=== PATIENT | female | born 1960 | race Hispanic/Latino ===

== ENCOUNTER 2019-01-14 10:13 | Emergency (ER) | payer OTHER ==
[~2019-01-14] VITALS: Ht 152.4 cm; Wt 89.4 kg
--- OUTSIDE RECORDS SUMMARY | 2019-01-14 10:21 | XMS REPORT | Summary of Care ---
Author Author [facility] [place] Organization [facility] [place] Address Unknown Phone Unavailable Encounter HQ Makenzier_dwight(FIN) [id number] Date(s): 04/14/18 - 04/14/18 [facility] [place] [address] [place] [phone] Discharge Disposition: Home or Self Care Attending Physician: ASHIA LOVE Vital Signs No data available for this section Problem List No data available for this section Allergies, Adverse Reactions, Alerts No data available for this section Medications No data available for this section Results No data available for this section Immunizations No data available for this section Procedures No data available for this section Social History No data available for this section Assessment and Plan No data available for this section
--- OUTSIDE RECORDS SUMMARY | 2019-01-14 10:21 | XMS REPORT | Summary of Care ---
Author Author [facility] [place] Address Unknown Phone Unavailable Encounter HQ Encntr_alibonnie(FIN) [id number] Date(s): 12/18/15 - 12/18/15 [facility] [place] [address] [place], [place] [address] [phone] Discharge Disposition: Home Attending Physician: Larisa Gasca MD Vital Signs No data available for this [...]
--- OUTSIDE RECORDS SUMMARY | 2019-01-14 10:21 | XMS REPORT | Summary of Care ---
Author Author [facility] [place] Address Unknown Phone Unavailable Encounter HQ Phillipntr_dwight(FIN) [id number] Date(s): 04/12/17 - 04/12/17 [facility] [place] [address] [place] [phone] Discharge Disposition: Home or Self Care Attending [...]
--- OUTSIDE RECORDS SUMMARY | 2019-01-14 10:21 | XMS REPORT | Clinical Summary ---
Author Author [facility] Organization [facility] Address Unknown Phone Unavailable Care Team Providers Care Career Coach Name Role Phone Jalen Hagen MD PCP Unavailable Allergies No Known Allergies Medications End Date Status Medication Sig Dispensed Refills Start Date Active losartan (COZAAR) 50 MG Take 50 mg by 0 tablet mouth daily. Active cholecalciferol, vitamin Take by 0 D3, 2,000 unit Cap mouth. Active Problems Problem Noted Date Sprain of cruciate ligament of knee 12/09/2014 Social History Date Tobacco Use Types Packs/Day Years Used Never Smoker Smokeless Tobacco: Never Used Alcohol Use Drinks/Week oz/Week Comments No Sex Assigned at Date Recorded Not on file Industry Job Start Date Occupation Not on file Not on file Not on file Travel End Travel History Travel Start No recent travel history available. Last Filed Vital Signs Not on file Plan of Treatment Not on file Implants Device Identifier Shelf Expiration Date Model / Serial / Lot Implanted Type Area Manufactur er 09/21/2016 [id number] / / [id number] [place],Biocomposite Swivelock C [place]/Art Left: Knee ARTHREX 4.75x19.1mm W/Closed Eyelet - hroscopy [id number] Implanted: Qty: 1 on 12/19/2014 by Salvatore Raymond MD 02/20/2016 [id number] / / [id number] Screw,Advanced Interference Senia [place]/Art Left: Knee DEPUY 9x23mm - [id number] hroscopy MITEK Implanted: Qty: 1 on 12/19/2014 by Salvatore Raymond MD 07/22/2017 [id number] / / [id number] Screw,Advanced Interference Senia [place]/Art Left: Knee DEPUY 7x23mm - [id number] hroscopy MITEK Implanted: Qty: 1 on 12/19/2014 by Salvatore Raymond MD 02/15/2019 [id number] / [id number] / Tendon,Achilles L[place] - Tissue Left: Knee MUSCULOSKE [id number] Graft/Subs LETAL Implanted: Qty: 1 on 12/19/2014 by titute TRANSPLANT Salvatore Raymond MD Results Not on fileafter 01/13/2018 Insurance Payer Benefit Subscriber ID Type Phone Address Plan / Group AETNA - MGD CARE AETNA HMO xxxxxxxxxx HMO/POS POS QPOS (Home) [place] [address] Advance Directives For more information, please contact: [facility] [address] [place] [address] Date Inactivated Comments Code Status Date Activated 12/19/2014 2:01 PM Full Code 12/19/2014 6:37 AM This code status was determined by: Patient
--- OUTSIDE RECORDS SUMMARY | 2019-01-14 10:21 | XMS REPORT | Summary of Care ---
Author Organization Unknown Address Unknown Phone Unavailable Encounter HQ Encntr_alias(FIN) [id number] Date(s): 12/13/14 - 12/13/14 [facility] Outpatient Imaging - [address] [address] [phone] Discharge Disposition: Home Physician Attending: Larisa Gasca MD Vital Signs No data [...]
--- OUTSIDE RECORDS SUMMARY | 2019-01-14 10:21 | XMS REPORT | Summary of Care ---
Author Organization Unknown Address Unknown Phone Unavailable Encounter Dates Location Diagnoses Discharge Providers Disposition 12/12/2013 [facility] Outpatient Imaging - [place]: Other Home Larisa Gasca - [place] Screening 12/12/[address]amm[address] Reason for Visit V76.12 - SCREEN MAMMOGRA Problem List No data available for this section Allergies, Adverse Reactions, Alerts No data available for this section Medications No data available for this section Medications Administered During Your Visit No data available for this section Immunizations No data available for this section
--- OUTSIDE RECORDS SUMMARY | 2019-01-14 10:21 | XMS REPORT | Continuity of Care Document ---
Author Author [facility] Address Unknown Phone Unavailable Problems Problem Status Onset Date Classification Date Reported Comments Source Z12.31 - ENCNTR SCREEN MAMMOGRAM FOR MA Active 10/26/2015 [facility] [place] Final: Other Screening Mammogram 12/15/2013 12/20/2013 [facility] [place] Medications Medication Details Route Status Patient Instructions Ordering Provider Order Date Source Allergies, Adverse Reactions, Alerts Substance Category Reaction Severity Reaction type Status Date Reported Comments Source Immunizations Immunization Date Given Site Status Last Updated Comments Source Results Order Name Results Value Reference Range Date Interpretation Comments Source Breast Mammo Scrn ANUJ incl CAD MA Breast Mammo Scrn ANUJ incl CAD CO BILATERAL DIGITAL SCREENING MAMMOGRAM WITH CAD: 04/14/2018 CLINICAL: /Z12.31 Encounter For Screening Mammogram For Malignant Neoplasm Of Breast. Current study was evaluated with a Computer Aided Detection (CAD) system. COMPARISON:Comparison is made to exams dated: 04/12/2017 mammogram, 12/18/2015 mammogram, and 12/13/2014 mammogram - [facility]. TECHNIQUE: Mammographic views were obtained using digital acquisition. Current study was also evaluated with a Computer Aided Detection (CAD) system. FINDINGS: The tissue of both breasts is heterogeneously dense, which could obscure detection of small masses. No significant masses, calcifications, or other findings are seen in either breast. Please note that a skin lesion in the medial right breast marked with a mole marker has grown. Currently 17 mm, previously 10 mm. If further evaluation is desired, consider dermatology consultation. IMPRESSION: NEGATIVE RECOMMENDATION:There is no mammographic evidence of malignancy. A 1 year screening mammogram is recommended.(04/15/2019) Note intervening enlargement of medial right breast skin lesion. This exam was interpreted at [id number] at [facility]. Professional services are provided by the [facility] Division of Diagnostic Imaging. Katina Espinosa M.D. th/:04/14/2018 19:56:28 [employer] Crash Fire(s): Pat Alex [facility] letter sent: BI-RADS 1/2 Dense Mammogram BI-RADS: 1 Negative 04/14/2018 - - Read by: Katina Espinosa MD Dictated Date/time: 04/14/18 19:56 Electronically Signed by: Katina Espinosa MD 04/14/18 19:56 FINAL REPORT JYOTI Tuttle Breast Mammo Scrn ANUJ incl CAD MA Breast Mammo Scrn ANUJ incl CAD MA - BREAST MAMMO SCRN ANUJ INCL CAD MA BILATERAL DIGITAL SCREENING MAMMOGRAM WITH CAD: 04/12/2017 CLINICAL: Routine/Screening. Current study was evaluated with a Computer Aided Detection (CAD) system. Comparison is made to exams dated: 12/18/2015 mammogram, 12/13/2014 mammogram, 12/12/2013 mammogram, 11/29/2012 mammogram, 09/12/2011 mammogram and 08/17/2009 mammogram - [facility]. The tissue of both breasts is heterogeneously dense, which could obscure detection of small masses. Multiple bilateral oval masses are fluctuating in size, a pattern consistent with benign etiology. There are benign calcifications in both breasts. No significant masses, calcifications, or other findings are seen in either breast. There has been no significant interval change. IMPRESSION: BENIGN There is no mammographic evidence of malignancy. A 1 year screening mammogram is recommended. Professional services are provided by the [facility] of Diagnostic Imaging. Constantino Piper M.D. 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 This exam was dictated and interpreted by [id number] for Parag. letter sent: Normal Henda Mammogram BI-RADS: 2 Benign 04/12/2017 - - Read by: Dereje Hull MD Dictated Date/time: 04/12/17 09:51 Electronically Signed by: Dereje Hull MD 04/12/17 09:51 FINAL REPORT JYOTI Tuttle Digital Mammo Screening Anuj MA Digital Mammo Screening Anuj MA - DIGITAL MAMMO SCREENING ANUJ MA BILATERAL DIGITAL SCREENING MAMMOGRAM WITH CAD: 12/18/2015 CLINICAL: Z01.419 Encounter For Gynecological Examination (General) (Routine) Without Abnormal Findings. Current study was evaluated with a Computer Aided Detection (CAD) system. Comparison is made to exams dated: 12/13/2014 mammogram, 12/12/2013 mammogram, 11/29/2012 mammogram, 09/12/2011 mammogram, 08/17/2009 mammogram and 06/24/2009 mammogram - [facility]. The tissue of both breasts is heterogeneously dense, which could obscure detection of small masses. Multiple bilateral oval masses are stable. There are benign calcifications in both breasts. No significant masses, calcifications, or other findings are seen in either breast. There has been no significant interval change. IMPRESSION: BENIGN There is no mammographic evidence of malignancy. A 1 year screening mammogram is recommended. Constantino Piper M.D. cm/penrad:12/21/2015 08:39:42 [employer] Rescue [employer] Crash Fire: Luzmaria VALERO(Boubacar)(), [facility] This exam was dictated and interpreted by [id number] for JYOTI Tuttle. letter sent: Normal exam Mammogram BI-RADS: 2 Benign 12/18/2015 - - Read by: Dereje Hull MD Dictated Date/time: 12/21/15 08:39 Electronically Signed by: Dereje Hull MD 12/21/15 08:39 FINAL REPORT LIDA Tuttle Digital Mammo Screening Anuj MA Digital Mammo Screening Anuj MA - DIGITAL MAMMO SCREENING ANUJ MA BILATERAL DIGITAL SCREENING MAMMOGRAM WITH CAD: 12/13/2014 CLINICAL: Routine. Current study was evaluated with a Computer Aided Detection (CAD) system. Comparison is made to exams dated: 04/20/2007 mammogram, 03/07/2008 mammogram, 06/24/2009 mammogram, 09/12/2011 mammogram, 11/29/2012 mammogram and 12/12/2013 mammogram - [facility]. The tissue of both breasts is heterogeneously dense, which could obscure detection of small masses. Several benign-appearing noncalcified masses, both breasts, probably cysts. Consider aspiration of any palpable mass, if clinically indicated. Also recommend repeat mammography in one year to assess for stability. There are benign calcifications in both breasts. No significant masses, calcifications, or other findings are seen in either breast. There has been no significant interval change. IMPRESSION: BENIGN There is no mammographic evidence of malignancy. A screening mammogram in one year is recommended. Dr. Joellen Menendez D.O. ht/penrad:12/15/2014 08:46:20 And Rescue [employer] Fighter Crash Fire: Margarita Gillis RT(R)(M), [facility] This exam was dictated and interpreted by [id number] for JYOTI Tuttle. letter sent: Normal exam Mammogram BI-RADS: 2 Benign 12/13/2014 - - Read by: Joellen Menendez DO Dictated Date/time: 12/15/14 08:46 Electronically Signed by: Joellen Menendez DO 12/15/14 08:46 FINAL REPORT LIDA Tuttle Digital Mammo Screening Anuj MA Digital Mammo Screening Anuj MA - DIGITAL MAMMO SCREENING ANUJ MA BILATERAL DIGITAL SCREENING MAMMOGRAM WITH CAD: 12/12/2013 CLINICAL: Routine. Current study was evaluated with a Computer Aided Detection (CAD) system. Comparison is made to exams dated: 08/17/2009 mammogram, 09/12/2011 mammogram and 11/29/2012 mammogram - [facility]. The tissue of both breasts is heterogeneously dense, which could obscure detection of small masses. Several benign-appearing noncalcified masses, both breasts, some larger and others smaller, probably cysts. Consider aspiration of any palpable mass, if clinically indicated. Also recommend repeat mammography in one year. There are benign calcifications in both breasts. No significant masses, calcifications, or other findings are seen in either breast. There has been no significant interval change. IMPRESSION: BENIGN There is no mammographic evidence of malignancy. A screening mammogram in one year is recommended. Dr. Joellen Menendez D.O. ht/penrad:12/12/2013 11:22:26 And Rescue [employer] Fighter Crash Fire: Yolanda Emmanuel RT(R)(M), [facility] This exam was dictated and interpreted by [id number] for JYOTI Camara. letter sent: Normal exam Mammogram BI-RADS: 2 Benign 12/12/2013 - - Read by: Joellen Menendez Dictated Date/time: 12/12/13 11:22 Electronically Signed by: Joellen Menendez , DO 12/12/13 11:22 FINAL REPORT [facility] [place] Vital Signs Vital Sign Value Date Comments Source Encounters Location Location Details Encounter Type Encounter Number Reason For Visit Attending Provider ADM Date DC Date Status Source [facility] - [place] [facility] [id number] _[id number] Larisa Gasca 12/12/2013 12/13/2013 [facility] [place] [facility] [place] [facility] [id number] Larisa Gasca 12/13/2014 12/14/2014 [facility] [place] [facility] [place] [facility] [id number] Larisa Gasca 12/18/2015 12/19/2015 [facility] [place] [facility] [place] [facility] [id number] ASHIA BASILIO 04/12/2017 04/13/2017 [facility] [place] [facility] [place] [facility] [id number] ASHIA BASILIO 04/14/2018 04/15/2018 [facility] [place] Procedures Procedure Code Date Perfomer Comments Source
[2019-01-14 11:32] VITALS: BP 142/88
[2019-01-14] MEDS ORDERED: CIPRO500 MG PO (11:33)
[2019-01-14] MEDS ORDERED: PHENAZOPYRIDIN100 MG PO (11:35)
== END 2019-01-14 11:41 | disposition home or self-care (01) ==
LOC: FSED 10:13
DX: R50.9 Fever, unspecified (principal); N30.90 Cystitis, unspecified without hematuria; I10 Essential (primary) hypertension
CPT/HCPCS: 81003; 87400; 99283